=== PATIENT | male | born 1995 | race Caucasian/White ===

== ENCOUNTER 2017-09-03 13:01 | Emergency (ER) | payer BC ==
[~2017-09-03] VITALS: Ht 182.9 cm; Wt 100.8 kg
[~2017-09-03 13:01] MED LIST: ALBU1AER9 INH; MOME100A INH; MONT1TAB3 PO
[2017-09-03 13:07] VITALS: TEMP 37.1; Ht 182.9 cm; Wt 100.8 kg
[2017-09-03] MEDS ORDERED: IBUPROFEN 200 MG TAB PO STA (13:19)
--- NOTE | 2017-09-03 13:29 | EMERGENCY ROOM VISIT NOTE ---
History Report prepared by Manish: Siddhartha King Under the Supervision of: Dr. Michael Ambrose M.D. First contact with patient: 13:15 Chief Complaint: HAND PAIN/INJURY Stated Complaint: SWELLING & PAIN IN RIGHT HAND History of Present Illness The patient is a 22 year old male who presents to the Emergency Room with complaints of constant 6/10 right hand pain secondary to punching a wall while intoxicated last night. He notes that he is right handed. The patient reports that he is generally healthy. He notes a history of controlled asthma. The patient denies any neck or back pain, chest pain, shortness of breath, or taking any other medications. Source of History: patient Onset: Last night Position: hand (right) Symptom Intensity: 6/10 Quality: other (pain) Timing: constant Associated Symptoms: No neck pain, No chest pain, No SOB, No back pain Review of Systems See HPI for pertinent positives & negatives. A total of 10 systems reviewed and were otherwise negative. Past Medical & Surgical Old medical records were reviewed. Nurse's notes were reviewed and I agree with. Family History Patient reports no known family medical history. Social History Smoking Status: Never Smoker Alcohol Use: occasionally Housing Status: lives with roommate Occupation Status: student Current/Historical Medications Scheduled Montelukast Sodium (Singulair), 10 MG PO HS Scheduled PRN Albuterol Sulfate (Proair Respiclick), 2 PUFFS INH Q4 PRN for Shortness of Breath Allergies Coded Allergies: No Known Allergies (Unverified , 09/03/17) Physical Exam Vital Signs Date Time Temp Pulse Resp B/P (MAP) Pulse Ox O2 Delivery O2 Flow Rate FiO2 09/03/17 14:42 80 17 138/86 96 09/03/17 13:07 37.1 83 18 133/80 97 Room Air Physical Exam General: Non-ill appearing young male in no acute distress. HEENT: Normal cephalic atraumatic. Pupils are equal round and reactive to light. Extraocular movements are intact. Oropharynx is pink with moist mucous membranes. No swelling of the mouth lips or tongue. Neck: Supple with a midline trachea. No meningeal signs or stiffness, no JVD or bruits. No Stridor. Chest: Clear to auscultation bilaterally. No wheezes or rhonchi. No increased work of breathing. Heart: regular rate and rhythm. Abdomen: Soft nontender, nondistended without rebound guarding or rigidity. Extremities: Right hand is mildly swollen diffusely. He has some mild tenderness on the 4th and 5th right metacarpal. Normal motor and sensation. Able to clench fist without deformity No calf tenderness or assymetry Spine/Back. Non tender to palpation. No CVA tenderness Skin: Good turgor without rashes. Neurologic exam: Cranial nerves two through 12 are intact. Motor and sensation are intact and symmetrical throughout. Medical Decision & Procedures ER Provider Diagnostic Interpretation: Radiology results as stated below per my review and radiologist interpretation: R HAND MIN 3 VIEWS ROUTINE CLINICAL HISTORY: eval for trauma trauma. Pain. COMPARISON: None. DISCUSSION: Fracture base fourth metacarpal. No evidence of dislocation. Considerable soft tissue edema. All remaining osseous structures are unremarkable. IMPRESSION: Fracture base fourth metacarpal. Soft tissue edema. The above report was generated using voice recognition software. It may contain grammatical, syntax or spelling errors. Electronically signed by: David Lin M.D. 09/03/2017 1:41 PM Dictated Date/Time: 09/03/2017 1:39 PM Medications Administered Medications (Trade) Dose Ordered Sig/Angel Route Start Time Stop Time Status Last Admin Dose Admin Ibuprofen (Advil Tab) 400 mg NOW STAT PO 09/03/17 13:19 09/03/17 13:20 DC 09/03/17 13:29 400 MG ED Course 1315: Past medical records reviewed. The patient was evaluated in room A3, and a complete history and physical examination were performed. 1319: Ordered Ibuprofen 400mg PO. 1413: Upon reevaluation, the patient is resting. I discussed the results and treatment plan with him. He verbalized agreement of the treatment plan. The patient was discharged home. Medical Decision Differentials include, but are not limited to; fracture, contusion, soft tissue injury. This patient comes in as described above. He was placed in room A3. Is here for treatment and evaluation of a right hand injury. He was drinking last night and punched a wall. He has pain along the base of the fourth and lesser degree to the fifth metacarpal. He has no rotational abnormality. There is no break in the skin. He has normal neurovascular status and good capillary refill. X-rays show a fracture to the base of the fourth metacarpal. He was placed in ulnar gutter splint in a sling. He was given referral to our on-call orthopedist Dr. Edward who happens to be a hand surgeon. I recommend he follow-up with Dr. Edward in the next couple days. Alternatively, he could follow-up with his hand surgeon back home or operated on his left hand. I told him use ibuprofen for pain and return if: numbness or weakness, increasing pain , any new problems or concerns. I again I stressed the importance of follow-up with an orthopedist as he may need further care such as casting or surgery. He was happy to plan and discharged to home. Medication Reconcilliation Current Medication List: was personally reviewed by me Blood Pressure Screening Patient's blood pressure: Normal blood pressure Impression Primary Impression: Closed fracture of 4th metacarpal Scribe Attestation The scribe's documentation has been prepared under my direction and personally reviewed by me in its entirety. I confirm that the note above accurately reflects all work, treatment, procedures, and medical decision making performed by me. Departure Information Dispostion Home / Self-Care Referrals No Doctor, Assigned (PCP) Forms HOME CARE DOCUMENTATION FORM, IMPORTANT VISIT INFORMATION Patient Instructions My [facility] Additional Instructions Rest. Drink plenty of fluids. Elevate. Use sling Use ibuprofen 400 mg every 6 hours if needed for pain You broke her fifth metacarpal bone in your hand and need to see an orthopedist this week for recheck. You will need further casting or possibly surgery. Follow-up with Dr. Edward (hand surgeon) or his office this week. You could also follow up with her hand surgeon back home instead Return to the ER if: Increasing pain, numbness or weakness, any new problems or concerns.
--- NOTE | 2017-09-03 13:42 | DIAGNOSTIC IMAGING REPORT ---
R HAND MIN 3 VIEWS ROUTINE CLINICAL HISTORY: eval for trauma trauma. Pain. COMPARISON: None. DISCUSSION: Fracture base fourth metacarpal. No evidence of dislocation. Considerable soft tissue edema. All remaining osseous structures are unremarkable. IMPRESSION: Fracture base fourth metacarpal. Soft tissue edema. The above report was generated using voice recognition software. It may contain grammatical, syntax or spelling errors. Electronically signed by: David Lin M.D. 09/03/2017 1:41 PM Dictated Date/Time: 09/03/2017 1:39 PM
[2017-09-03] MEDS ORDERED: ALBU18002 INH (14:03)
[2017-09-03 14:42] VITALS: BP 138/86; PULSE 80; O2SAT 96
== END 2017-09-03 14:44 | disposition home or self-care (01) ==
LOC: C.EDB 13:05 → C.EDA 14:44
DX: S62.314A Displaced fracture of base of fourth metacarpal bone, right hand, initial encounter for closed fracture (principal); W22.09XA Striking against other stationary object, initial encounter; J45.909 Unspecified asthma, uncomplicated